=== PATIENT | female | born 1985 | race Caucasian/White ===

== ENCOUNTER → 2020-04-09 07:42 | Outpatient (CLI) | payer BC, SELFPAY ==
--- NOTE | ~2020-04-09 | MR_ITS ---
EXAMINATION: MR pituitary wo/w con DATE: 04/09/2020 09:18 INDICATION: Hyperprolactinemia. TECHNIQUE: Magnetic resonance imaging (MRI) of the brain and brainstem was performed without and with 11 mL MultiHance intravenous contrast. Whole-brain sequences included sagittal T1-weighted FSE, axia l diffusion-weighted FS EPI, axial T2*-weighted GRE, axial T2-weighted FLAIR Propeller, and axial T2- weighted Propeller. Small [id number]-dr-[id number] sequences included sagittal and coronal T1-weighted FSE cente red at the pituitary. Postcontrast sequences included small [id number]-bi-[id number] coronal T1-weighted FSE in a time course and sagittal T1-weighted FSE and whole-brain axial T1-weighted FSE. Apparent diffusion coefficient (ADC) maps were created. COMPARISON: None. FINDINGS: The pituitary is normal in size with height of 6 mm and concave superior margin. There is n o intracranial hemorrhage, acute infarction, or abnormal intracranial mass lesion. The ventricles are normal in size. The mastoid air cells are normal. The orbits are normal. The paranasal sinuses are c lear. IMPRESSION: 1. Normal brain. Normal pituitary. Reviewed, dictated and finalized at location A. Y PULLER
[2020-04-09 08:21] LABS: Estimated Glomerular Filt Rate > 60
== END ==
PROVIDERS: Visit Provider Obstetrics & Gynecology Gynecology
DX: E22.1 Hyperprolactinemia (principal)
CPT/HCPCS: 70553; A9577

== ENCOUNTER → 2020-06-04 09:08 | Outpatient (CLI) | payer BC, SELFPAY ==
--- NOTE | ~2020-06-04 | US_ITS ---
EXAMINATION: US OB <= 14 weeks fetus DATE: 06/04/2020 09:26 INDICATION: Establish dating of during first trimester TECHNIQUE: Real-time pelvic ultrasound utilizing transabdominal probe was performed. The nina benavides radiologist was not present for the study. COMPARISON: None. FINDINGS: The uterus measures 11.0 x 5.4 x 7.5 cm. There is an intrauterine gestational sac. A yolk sac and fe connor pole are identified. The crown rump length measures 6 mm, which correlates with an estimated gest ational age of 6 weeks and 3 days. heart motion is identified measuring 116 beats per minute (b pm) by M-mode Doppler. The right ovary is not visualized The left ovary measures 4.1 x 2.9 x 3.4 cm. 3.1 x 1.9 x 2.7 cm anec hoic likely corpus luteum cyst in the left ovary. Basilar flow identified at the left ovary on color Doppler. There is no free fluid in the pelvis. IMPRESSION: 1. Single living fetus with heart rate of 116 bpm. 2. Gestational age by ultrasound of 6 weeks 3 day(s) +/- 4 day(s) with ultrasound estimated date of delivery (YENNY) of 01/25/2021. Reviewed, dictated and finalized at location B. ON FORMING MACHINE TENDER IMPRESSION: 1. Single living fetus with heart rate of 116 bpm. 2. Gestational age by ultrasound of 6 weeks 3 day(s) +/- 4 day(s) with ultraso und estimated date of delivery (YENNY) of 01/25/2021.
== END ==
PROVIDERS: Visit Provider Obstetrics & Gynecology Gynecology
DX: Z34.91 Encounter for supervision of normal pregnancy, unspecified, first trimester (principal); Z3A.01 Less than 8 weeks gestation of pregnancy
CPT/HCPCS: 76801

== ENCOUNTER → 2020-06-12 12:46 | Outpatient (CLI) | payer BC, SELFPAY ==
--- NOTE | ~2020-06-12 | US_ITS ---
US OB limited DATE: 06/12/2020 13:00 INDICATION: Abnormal heart rate TECHNIQUE: Real-time imaging via transabdominal approach COMPARISON: 06/04/2020 obstetrical ultrasound FINDINGS: The uterus measures 10.7 cm height, 5.7 cm AP and 8.4 cm transverse dimension. A normally s haped intrauterine gestational sac is identified. pole is detected with heart rate of 160 bpm. IMPRESSION: Limited examination showing heart rate of 160 bpm Reviewed, dictated and finalized at Location A. Reviewed, dictated and finalized at location A. BUILDER
== END ==
PROVIDERS: Visit Provider Obstetrics & Gynecology Gynecology
DX: O36.8310 Maternal care for abnormalities of the fetal heart rate or rhythm, first trimester, not applicable or unspecified (principal); Z3A.00 Weeks of gestation of pregnancy not specified
CPT/HCPCS: 76815

== ENCOUNTER → 2020-08-27 14:56 | Outpatient (CLI) | payer BC, SELFPAY ==
--- NOTE | ~2020-08-27 | US_ITS ---
EXAMINATION: US OB >= 14 weeks Fetus DATE: 08/27/2020 15:39 INDICATION: survey TECHNIQUE: Multiple obstetric sonographic images performed. FINDINGS: Comparison to multiple prior studies sequentially, with oldest reviewed study dated 021. There is a single living fetus in transverse presentation. The placenta is posterior without placent a previa, measuring 4.5 cm to the cervix. Amniotic fluid volume is normal. cardiac activity and movement is noted with a heart rate of 145 beats per minute. The following anatomy was identified as normal: 4 chamber heart 3 vessel cord cord insertion kidneys urinary bladder stomach spine diaphragm ventricles cisterna magna cerebellum The following biometric data were obtained: BPD: 44mm corresponds to gestational age 19 weeks 2 days. Head circumference: 160 mm corresponds to gestational age 18 weeks 6 days. Abdominal circumference: 138 mm corresponds to gestational age 19 weeks 1 days. Femur length: 30 mm corresponds to gestational age 19 weeks 1 days. Head circumference to abdominal circumference ratio: 1.16 (normal range for expected gestational age is 1.09-1.26). Estimated weight: 275 grams +/- 41 grams using Hadlock method. IMPRESSION: 1: Single living intrauterine with an estimated gestational age of 18weeks 3days by initial ultrasound measurements, with an EDC of 01/25/2021 in transverse presentation. 2. Normal survey. Reviewed, dictated and finalized at location A. IMPRESSION: 1: Single living intrauterine with an estimated gestational age of 18 weeks 3days by initial ultrasound measurements, with an EDC of 01/25/2021 in tra nsverse presentation. 2. Normal survey.
== END ==
PROVIDERS: Visit Provider Obstetrics & Gynecology Gynecology
DX: Z34.92 Encounter for supervision of normal pregnancy, unspecified, second trimester (principal); Z3A.19 19 weeks gestation of pregnancy
CPT/HCPCS: 76805

== ENCOUNTER 2020-11-19 08:25 | Observation (INO) | payer BC, SELFPAY ==
--- NOTE | ~2020-11-19 | US_ITS ---
EXAMINATION: US OB limited DATE: 11/19/2020 10:02 INDICATION: Third trimester vaginal bleeding. TECHNIQUE: Real-time ultrasound of the pelvis was performed. COMPARISON: Ultrasound 08/27/2020 FINDINGS: There is a single fetus in vertex presentation. The placenta is anterior and fundal. heart rat e is 150 beats per minute (bpm). The amniotic fluid volume is subjectively normal. IMPRESSION: 1. Single living fetus in vertex presentation. 2. Normal placenta. Reviewed, dictated and finalized at location A.
[2020-11-19 08:44] VITALS: BP 105/69; PULSE 71
[2020-11-19 09:00] VITALS: BP 99/64; PULSE 61
--- NOTE | 2020-11-19 10:33 | OBADM ---
This patient, Veronica Valdes, admitted to the OB room OB Post 116 for observation. Patient/family oriented to hospital policies and general routines including ID bracelet, bed and alarms, visiting hours, pain management, procedures, bathroom and other care routines, personal items, smoking policy, room service/diet, and visiting hours. Patient/Family are encouraged to report perceived risks to care and to ask questions if they do not understand what they are told or what they should do.
--- NOTE | 2020-11-23 09:27 | PM.OBTRLD ---
OB - Triage/Final Diagnosis Visit Information Reason for evaluation: other (vaginal bleeding) Comments/Additional reasons for admission: I have assessed the risk for this patient, Veronica Lay Valdes, and determined that she would benefit from observation care.
== END 2020-11-19 10:26 | disposition home or self-care (01) ==
PROVIDERS: Admitting Provider Obstetrics & Gynecology Gynecology; Visit Provider Obstetrics & Gynecology Gynecology
DX: O46.93 Antepartum hemorrhage, unspecified, third trimester (principal); Z3A.30 30 weeks gestation of pregnancy
CPT/HCPCS: 76815; G0378; G0379

== ENCOUNTER 2020-11-24 11:04 | Outpatient (CLI) | payer BC, SELFPAY ==
--- NOTE | ~2020-11-24 | US_ITS ---
EXAMINATION: US OB limited DATE: 11/24/2020 11:42 INDICATION: Vaginal bleeding during third trimester TECHNIQUE: Real-time ultrasound of the pelvis was performed. The interpreting radiologist was not pre sent for the study. COMPARISON: 11/19/2020 FINDINGS: There is a single living fetus in vertex presentation. The placenta is anterior, fundal, an d posterior. cardiac activity and movement are noted. heart rate is 141 beats per m inute (bpm). The amniotic fluid index is subjectively normal. IMPRESSION: 1. Single living fetus in vertex presentation. 2. No sonographic correlate for the patient's symptoms. Reviewed, dictated and finalized at location B.
== END 2020-11-24 11:05 | disposition home or self-care (01) ==
LOC: ANHIMG 11:10
PROVIDERS: Visit Provider Obstetrics & Gynecology Gynecology
DX: O46.93 Antepartum hemorrhage, unspecified, third trimester (principal); Z3A.00 Weeks of gestation of pregnancy not specified
CPT/HCPCS: 76815

== ENCOUNTER 2021-01-23 05:06 | Inpatient (IN) | payer BC, SELFPAY ==
[2021-01-23] VITALS (71 sets, daily range): BP systolic 95–122; BP diastolic 42–79; PULSE 59–88; RESP 18–20; TEMP 36.6–36.9; O2SAT 90–100; BMI 26.2
[2021-01-23 05:55] LABS: Basophils Percent Auto 0.2 % (0.2-1.2); Eosinophils Absolute Auto 0.1 K/mm3 (0-0.3); Eosinophils Percent Auto 1.1 % (0-4.4); Hematocrit 34.1 % (37.0-47.0); Hemoglobin 11.5 g/dL (12.0-15.0); Immature Granulocyte Absolute 0.11 K/mm3 (0.00-0.031); Immature Granulocyte Percent A 1.3 % (0-0.5); Lymphocytes Absolute Auto 1.97 K/mm3 (0.9-3.2); Lymphocytes Percent Auto 23.5 % (18.3-44.2); Mean Corpuscular HGB Conc 33.7 g/dl (32-36); Mean Corpuscular Hemoglobin 32.2 pg (26-34); Mean Corpuscular Volume 95.5 fl (80-100); Mean Platelet Volume 10.5 fl (7.4-10.4); Monocytes Absolute Auto 0.6 K/mm3 (0.1-0.6); Monocytes Percent Auto 6.9 % (2.6-8.5); Neutrophils Absolute Auto 5.6 K/mm3 (1.3-6.7); Platelet Count Result 106 k/mm3 (150-375); Red Blood Count 3.57 M/mm3 (4.2-5.4); White Blood Count 8.4 K/mm3 (4.5-10.0)
[2021-01-23] MEDS: AMPICILLIN 2 GM/NS 100 ML 2 GM/100 ML BAG IVPB (06:14)
[2021-01-23] MEDS: LACTATED RINGERS 1,000 ML 125 ML IV CONT ×2 (06:14→09:08)
[2021-01-23] MEDS: OXYTOCIN 30 UNITS/NS 500 ML 30 UNITS/500 ML BAG IV CONT (06:14)
--- NOTE | 2021-01-23 06:16 | LDADM ---
This patient, Veronica Valdes, was admitted to Labor/Delivery/Recovery 103 on 01/23/21 at 05:06. Plans for labor, pain management and were discussed with patient. Patient/family oriented to hospital policies and general routines including ID bracelet, bed and alarms, visiting hours, pain management, procedures, bathroom and other care routines, personal items, smoking policy, room service/diet and guest tray routines, infant security routines, and visiting hours. Patient/Family are encouraged to report perceived risks to care and to ask questions if they do not understand what they are told or what they should do. See OBIX for further documentation.
--- NOTE | 2021-01-23 07:37 | WPDOBADMIT ---
Obstetrics - Admit Note Admission Note: record reviewed. No pertinent additions to the history and/or any subsequent changes in the physical findings that are not consistent with the expected course of the were found. Additions to the history and/or subsequent changes in the physical findings follow. Here for MIL. Cervix 350/-2 AROM with clear fluid. FHTs reactive
[2021-01-23 08:52] LABS: Rapid Plasma Reagin Non-Reactive (NonReactive)
[2021-01-23] MEDS: AMPICILLIN 1 GM/NS 50 ML 1 GM/50 ML BAG IVPB (10:10)
--- NOTE | 2021-01-23 12:48 | P.PCNOB_ITS ---
OB - Delivery Note Procedure Delivery date: 01/23/21 events: Labor Induction Intrapartal events: None Induction method: AROM and per pitocin protocol Delivery monitor: external FHT and external uterine Route of delivery: Laceration Description: None Specimen: No Quantitative Blood Loss (ml): 125 Anesthesia type: Epidural Disposition: floor [place] Baby Date of : 01/23/21 Weeks of gestation at delivery: 39 gender: Female presentation: vertex position: Left Occiput Anterior Placenta delivery description: Spontaneous cord vessel description: 3 Vessels score one minute: 9 score five minutes: 9
--- NOTE | 2021-01-23 12:49 | PM.OBDSVD ---
DS: Admitting Diagnosis Discharge Date 01/25/21 Admitting Diagnosis IUP 39 4/7 wk for MIL DS: Discharge Diagnosis Discharge Diagnosis (1) (normal spontaneous vaginal delivery): Code(s): O80 - Encounter for full-term uncomplicated delivery Status: Acute OB - DS: Summary OB Procedures : Ultrasound OB Procedures Intrapartum: Spontaneous Vag Delivery OB Procedures: : None Peripartum Data Delivery Method: Natural Vaginal complications: none Status at Discharge Functional status at discharge: independent ambulation Overall status at discharge: patient is progressing back to baseline Time Spent with Patient Time attestation: Total time spent providing and/or coordinating discharge services: DS: Data Data Completed and Pending Labs on day of discharge: Labs from last 24 hours 01/23/21 01/23/21 01/23/21 05:39 05:39 05:39 WBC 8.4 RBC 3.57 L Hgb 11.5 L Hct 34.1 L MCV 95.5 MCH 32.2 MCHC 33.7 RDW 13.0 Plt Count 106 L MPV 10.5 H Immature Gran % (Auto) 1.3 H Neut % (Auto) 67.0 Lymph % (Auto) 23.5 [place] % (Auto) 6.9 Eos % (Auto) 1.1 Baso % (Auto) 0.2 Lymph # (Auto) 1.97 [place] # (Auto) 0.6 Eos # (Auto) 0.1 Baso # (Auto) 0.0 Abs Immat Gran (auto) 0.11 H Absolute Neuts (auto) 5.6 Absolute Nucleated RBC 0.0 Nucleated RBC % 0.0 RPR Non-reactive Blood Type A Positive Antibody Screen Negative Discharge Plan Discharge Attending physician on discharge: Kathy Mccray Discharging Clinician: Kathy Mccray Anticipated Discharge Date/Time: 01/25/21 12:50 Patient Disposition: Home, Self-Care Activity: may shower and pelvic rest Diet: regular Patient Instructions: Antibiotic Form Stand Alone Forms: General Discharge Information Follow-up/Referrals: Kathy Mccray MD [Physician] - 6 Weeks Discharge Medications: Continued ergocalciferol (vitamin D2) 1,250 mcg (50,000 unit) capsule 1,250 mcg PO MONTHLY RF: 0 Classic 28 mg iron- 800 mcg Tablet 1 tablet PO DAILY RF: 0 Discontinued Slow Fe 142 mg (45 mg iron) Tablet Extended Release 142 mg PO DAILY RF: 0 Date of admission: 01/23/21 05:06 Primary Care Provider: PHYSICIAN,CLEAT THROWER Admitting Provider: Kathy Mccray Attending physician on admission: Kathy Mccray Condition: Stable Care Plan Goals: plans condoms until vasectomy
[2021-01-23] MEDS: OXYTOCIN 30 UNITS/NS 500 ML 30 UNITS/500 ML BAG 125 UNITS IV CONT (13:17)
[2021-01-23 13:29] LABS: Hematocrit 34.3 % (37.0-47.0); Hemoglobin 11.5 g/dL (12.0-15.0); Immature Platelet Fraction Pct 4.8 % (0.9-11.2); Mean Corpuscular HGB Conc 33.5 g/dl (32-36); Mean Corpuscular Hemoglobin 31.9 pg (26-34); Mean Platelet Volume 10.1 fl (7.4-10.4); Platelet Count Result 109 k/mm3 (150-375); Red Blood Count 3.61 M/mm3 (4.2-5.4); Red Cell Distribution Width 13.1 % (11.5-14.5); White Blood Count 13.8 K/mm3 (4.5-10.0)
[2021-01-23] MEDS: BENZOCAINE 20% AER SPR (*SP) 56 GM CAN 1 SPRAY TOPICAL (15:33)
[2021-01-23] MEDS: WITCH HAZEL 40 PADS 1 PAD TOPICAL (15:33)
--- NOTE | 2021-01-23 15:44 | PC.NURSE ---
Patient transferred to post room #283 per wheelchair from labor and delivery. Support person present. Oriented to unit, room, information board, rooming in, admission packet and security measures. Patient verbalizes understanding.
[2021-01-23] MEDS: IBUPROFEN 600 MG TABLET PO (18:19)
[2021-01-24 04:00] VITALS: BP 95/61; PULSE 71; RESP 18; TEMP 36.2; O2SAT 99
[2021-01-24 04:45] LABS: Hematocrit 33.7 % (37.0-47.0); Hemoglobin 11.5 g/dL (12.0-15.0)
--- NOTE | 2021-01-24 08:45 | WPDANLDPN2 ---
Anes-Prog Note L&D Date/Time: 01/24/21 08:45 Comfortable throughout: labor and delivery Neuraxial method: epidural Epidural/Spinal procedure site: clean & non-tender Neuro status: Neuro function grossly intact. Cardiovascular status: normal Respiratory status: normal Airway patency: baseline Mental status: baseline Vital Signs: Last Vital Signs Temp 97.1 F L 01/24/21 04:00 Pulse 71 01/24/21 04:00 Resp 18 01/24/21 04:00 BP 95/61 L 01/24/21 04:00 Pulse Ox 99 01/24/21 04:00 Pain score (VAS): 0 I/O: Intake & Output 01/23/21 01/24/21 01/24/21 23:59 07:59 15:59 Intake Total 500 Balance 500 Patient feedback: Patient satisfied with anesthetic care.
[2021-01-24 09:40] VITALS: BP 98/63; PULSE 69; RESP 16; TEMP 36.1
[2021-01-24] MEDS: MULTIVIT/MIN/PREN/FOL AC/IRON TABLET 1 TAB PO (09:42)
--- NOTE | 2021-01-24 10:06 | P.PNOB_ITS ---
OB - PN: Subj Subjective Date/time seen: 01/24/21 10:06 Patient comments: no complaints and pain well controlled baby status: doing well OB - PN: Obj Data Labs CBC & Chem 7: 01/24/21 04:03 Labs: Laboratory Results - last 24 hr 01/23/21 01/24/21 13:19 04:03 WBC 13.8 H RBC 3.61 L Hgb 11.5 L 11.5 L Hct 34.3 L 33.7 L MCV 95.0 MCH 31.9 MCHC 33.5 RDW 13.1 Plt Count 109 L MPV 10.1 % Immature Plt Fraction 4.8 OB - PN A/P Plan day: 1 Plan: routine care, discharge home (if ok with professor in family studies) and f ollow up 6 weeks Time Spent With Patient Time: Total time spent is greater than 50% in coordination of care (as documented) at patient's floor/unit and/or counseling patient: Exam : Bimanual exam- vagina & uterus: other (Uterus firm, nt @U)
[2021-01-24 12:20] VITALS: BP 108/71; PULSE 65; RESP 18; TEMP 36.3
[2021-01-24 20:15] VITALS: BP 92/58; PULSE 64; RESP 18; TEMP 36.8; O2SAT 97
[2021-01-25 07:40] VITALS: BP 104/73; PULSE 61; RESP 18; TEMP 36.7
[2021-01-25] MEDS: MULTIVIT/MIN/PREN/FOL AC/IRON TABLET 1 TAB PO (07:40)
--- NOTE | 2021-01-25 07:40 | PC.NURSE ---
Patient instructed to view the discharge video Mother & Baby Care, The First Two Weeks . Patient was given the opportunity and encouraged to ask questions. Patient verbalized understanding of information shared and has been given the mother/baby guide for home reference.
--- NOTE | 2021-01-25 09:29 | PM.OBPNVD ---
OB - PN: Subj Subjective Date/time seen: 01/25/21 09:29 Patient comments: no complaints and pain well controlled baby status: doing well OB - PN: Obj Data Labs CBC & Chem 7: 01/24/21 04:03 OB - PN A/P Plan day: 2 Plan: routine care, discharge home and follow up 6 weeks Time Spent With Patient Time: Total time spent is greater than 50% in coordination of care (as documented) at patient's floor/unit and/or counseling patient: Exam : Bimanual exam- vagina & uterus: other (Uterus firm, nt @U)
[2021-01-28 11:18] VITALS: BP 97/70; PULSE 67; RESP 20; TEMP 36.9; O2SAT 100
== END 2021-01-25 11:39 | disposition home or self-care (01) | DRG 807 ==
LOC: ANHLDR 12:50 → ANHOB2 15:57
PROVIDERS: Anesthesiology; Admitting Provider Obstetrics & Gynecology Gynecology; Visit Provider Obstetrics & Gynecology Gynecology
DX: O99.824 Streptococcus B carrier state complicating childbirth (principal); Z37.0 Single live birth; Z3A.39 39 weeks gestation of pregnancy
CPT/HCPCS: 36415; 85014; 85018; 85025; 85027; 85055; 86592; 86850; 86900; 86901; A9270; J0290; J2590; J2795; J7120